=== PATIENT | female | born 1950 | race Caucasian/White ===

== ENCOUNTER → 2016-11-17 | Outpatient (CLI) | payer MEDICARE ==
--- NOTE | 2016-11-18 07:11 | WWHP ---
DATE OF SERVICE: 11/17/2016 CHIEF COMPLAINT: The patient is here for her routine gynecologic exam. HPI: This is a 66-year-old G5, P2-0-3-2 with an LMP of 1996. She is status post vaginal hysterectomy with anterior repair for benign reasons. The patient is without gynecologic complaints. She previously saw Dr. Adan for her gynecologic care. PAST MEDICAL HISTORY: Hypothyroidism. MEDICATIONS: 1. Synthroid 150 mcg daily. 2. Multivitamin daily. 3. Vitamin D 2000 units daily. Allergies to ASPIRIN, which caused throat tightening and CT SCAN DYE, which also caused throat tightening. PAST SURGICAL HISTORY: Salpingectomy for an ectopic , vaginal hysterectomy with anterior repair in 1996, cholecystectomy 2013, thyroidectomy for goiter in 1965, heel surgery, TMJ surgery, appendectomy, and tonsillectomy in the past. PAST OB HISTORY: Two vaginal deliveries. She had two spontaneous abortions and one ectopic . 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 She is status post vaginal hysterectomy in 1996. SOCIAL HISTORY: She denies tobacco, alcohol, and drug use. 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 FAMILY HISTORY: Sister had breast cancer and at age 65. Aunt had breast cancer. Father and mother had coronary artery disease and grandfather and grandmother had diabetes. REVIEW OF SYSTEMS: Weight has been stable. She denies respiratory, cardiac, or GI problems. PHYSICAL EXAM: Blood pressure 128/85. Height 5 feet 4 inches. Weight 176 pounds. Temperature 97.9, pulse 75. This a well-developed, well-nourished white female who is alert and oriented x3 in no acute distress. HEENT is within normal limits. NECK: Supple without mass or thyromegaly. CHEST AND LUNGS: Clear to auscultation. HEART: Regular rate and rhythm. Breasts are without mass or discharge. Axillary exam is negative for adenopathy. BACK: Negative for CVA tenderness. ABDOMEN: Soft, nontender, without palpable masses. PELVIC EXAM: External genitalia reveals mild atrophy without lesions. Vagina reveals mild atrophy without lesions. There is no evidence of prolapse. Bimanual exam is negative for mass or tenderness. Rectovaginal exam is negative for mass or tenderness and is negative for occult blood. EXTREMITIES: Nontender. IMPRESSION: A 66-year-old menopausal female, status post vaginal hysterectomy for benign reasons with normal gynecologic exam. PLAN: 1. Pap smears have been discontinued. 2. Self breast examination was discussed. 3. Left-sided mammogram will be due in 5 months and a slip was given to patient for this. 4. Bone density testing will be done through Dr. Mayorga in the near future and this has been scheduled for November. 5. She will return in one year.
== END | disposition home or self-care (01) ==

== ENCOUNTER → 2017-04-12 | Outpatient (CLI) | payer MEDICARE ==
--- NOTE | 2017-04-12 10:02 | MM ---
Reason for exam: follow-up at short interval from prior study. Last mammogram was performed 6 months ago. History: Patient is postmenopausal. Family history of breast cancer in sister at age 56, breast cancer in aunt at age 65, and breast cancer in cousin at age 40. Took estrogen for 2 years beginning at age 51. Physical Findings: Nurse did not find any significant physical abnormalities on exam. MG 3D Diag Mammo W/Cad LT CC and MLO view(s) were taken of the left breast. Prior study comparison: October 08, 2016, left breast MG work up mamm w CAD LT. October 01, 2016, bilateral MG screening mammo w CAD. October 15, 2014, bilateral MG screening mammo w CAD. There are scattered fibroglandular densities. Finding: There are typically benign round calcifications in the left breast. There is no discrete abnormality. These results were verbally communicated with the patient and result sheet given to the patient on 04/12/17. ASSESSMENT: Benign, BI-RAD 2 RECOMMENDATION: Return to routine screening mammogram schedule for both breasts. Back on schedule.
== END | disposition home or self-care (01) ==
LOC: RADMAMWWP 08:43
PROVIDERS: ATTEND Obstetrics & Gynecology
DX: R92.8 Other abnormal and inconclusive findings on diagnostic imaging of breast (principal)
CPT/HCPCS: G0206; G0279

== ENCOUNTER → 2017-11-16 | Outpatient (CLI) | payer MEDICARE ==
--- NOTE | 2017-11-17 08:59 | WWHP ---
[facility] - HISTORY AND PHYSICAL DATE OF DICTATION: 11/16/2017 CHIEF COMPLAINT: The patient is here for her routine gynecologic exam. HPI: This is a 67-year-old, G5, P2 0-3-2 with an LMP of 1996. The patient is status post vaginal hysterectomy for benign reasons. The patient is without gynecologic complaints. PAST MEDICAL HISTORY: Hypothyroidism. MEDICATIONS: Levothyroxine 150 mcg daily, multivitamin 1 daily, vitamin D 2000 units daily. ALLERGIES: ASPIRIN, WHICH CAUSES THROAT TIGHTENING AND CT SCAN DYE, WHICH ALSO CAUSED THROAT TIGHTENING. PAST SURGICAL HISTORY: Colonoscopy 2015, salpingectomy for an ectopic in the past, vaginal hysterectomy with anterior repair in 1996, cholecystectomy, thyroidectomy, heel surgery, TMJ, appendectomy and tonsillectomy in the past. 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 She has no history of STDs. SOCIAL HISTORY: She denies tobacco, alcohol, and drug use. 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 She spends part of the year up [place] in [place]. FAMILY HISTORY: Daughter recently was diagnosed with SLE, rheumatoid arthritis and heart valve problems. She has a sister who had breast cancer and an aunt who also had breast cancer. Mother and father both have coronary artery disease and a grandfather and grandmother have diabetes. REVIEW OF SYSTEMS: She has lost about 5 pounds over the last year. She denies respiratory, cardiac or GI problems. She denies maltreatment or falling. : She denies any significant problems with urinary leakage. PHYSICAL EXAM: Blood pressure 143/83, height 5 feet 4 inches, weight 171 pounds, temperature 97.9, pulse 74, BMI 29. This is a well-developed, well-nourished, white female, who is alert and oriented x3, in no acute distress. HEENT: Within normal limits. NECK: Supple without mass or thyromegaly. Chest and LUNGS: Clear to auscultation. HEART: Regular rate and rhythm. Breasts are without mass or discharge. Axillary exam is negative for adenopathy. Back negative for CVA tenderness. ABDOMEN: Soft, nontender, without palpable masses. Pelvic exam external genitalia reveals yipi-uk-sukaonwy atrophy without lesions. Vagina reveals [id number] atrophy without lesions. There is no significant prolapse. Bimanual exam is negative for mass or tenderness. Rectovaginal exam is negative for mass or tenderness and is negative for occult blood. Extremities nontender. IMPRESSION: 67-year-old menopausal female who is status post vaginal hysterectomy for benign reasons with normal gynecologic exam. PLAN: 1. Pap smears have been discontinued. 2. Self breast examination was discussed. 3. She had a benign mammogram in 03/2017. She will repeat this in 1 year. 4. She states she had a bone density test in [address] Mayorga and she will try to get a copy of the report for me. 5. Osteoporosis prevention was discussed. 6. She is declining all flu shots. 7. She will return in 1 year. MMODL / IJN: [id number] /
== END ==
LOC: CANPRECLI → WWCWWP 11:05
PROVIDERS: ATTEND Obstetrics & Gynecology
DX: Z53.9 Procedure and treatment not carried out, unspecified reason (principal)

== ENCOUNTER → 2019-02-01 | Outpatient (CLI) | payer MEDICARE ==
[2019-02-01 10:43] VITALS: BP 139/84; PULSE 81; RESP 20; TEMP 97.6; BMI 29.8
--- NOTE | 2019-02-01 11:39 | P.HPOB ---
History of Present Illness H&P Date: 02/01/19 Chief Complaint: The patient is here for her routine gynecologic exam and ma mmogram. This is a 68 year old 032 with an LMP of 1996. She is status post vaginal hysterectomy for benign reasons. The patient is without gynecologic complaints. Review of Systems She is gained 3 pounds over the last year. She denies respiratory, cardiac and G.I. problems. She denies maltreatment or problems with falling. : she denies any significant problems with urinary leakage. Past Medical History Past Medical History: Asthma, Thyroid Disorder Additional Past Medical History / Comment(s): Hypothyroidism. 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 History of Any Multi-Drug Resistant Organisms: None Reported Past Surgical History: Appendectomy, Hysterectomy, Orthopedic Surgery, Tonsillectomy Additional Past Surgical History / Comment(s): GUS HEEL SX, GUS TMJ SX, SALPINGECTOMY FOR TUBAL PREG, THYROIDECTOMY. Vaginal Hysterectomy with anterior repair 1996. Colonoscopy 2015. 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 She is not sexually active. She spends part of the year up [place] in [place]. - Past Family History Sister(s) Family Medical History: Cancer Additional Family Medical History / Comment(s): BREAST CA. Mother Family Medical History: Coronary Artery Disease (CAD) Additional Family Medical History / Comment(s): An aunt had breast cancer. Father Family Medical History: Coronary Artery Disease (CAD) Daughter(s) Additional Family Medical History / Comment(s): SLE Medications and Allergies Home Medications Medication Instructions Recorded Confirmed Type Levothyroxine Sodium [Synthroid] 150 mcg PO DAILY 11/12/14 02/01/19 History Cholecalciferol (Vitamin D3) 2,000 unit PO DAILY 02/01/19 02/01/19 History [Vitamin D3] Allergies Allergy/AdvReac Type Severity Reaction Status Date / Time aspirin Allergy LIGHTHEADEDNESS, Verified 02/01/19 10:32 "SHAKES" Iodinated Contrast- Oral and Allergy Itching, Verified 02/01/19 10:32 IV Dye TIGHTNESS [Iodinated Contrast Media - IN THROAT IV Dye] Exam Vital Signs Temp Pulse Resp BP Pulse Ox 02/01/19 10:35 97.6 F 81 20 139/84 99 Intake and Output 01/31/19 02/01/19 02/01/19 22:59 06:59 14:59 Other: Weight 78.925 kg Height 5'4", weight 174 pounds, BMI 29.9. This is a well-developed well-nourished white female who is alert and oriented times 3 in no acute distress. HEENT: Within normal limits. NECK: Supple without mass or thyromegaly. CHEST AND LUNGS: Clear to auscultation. HEART: Regular rate and rhythm. BREASTS: Are without mass or discharge. AXILLARY EXAM: Negative for adenopathy. BACK: Negative for CVA tenderness. ABDOMEN: Soft, nontender, without palpable masses. PELVIC EXAM: External genitalia appears normal with mild to moderate atrophy. Vagina appears normal with mild to moderate atrophy. There is no evidence of prolapse. Bimanual examination is negative for mass or tenderness. RECTAL EXAM: Rectovaginal exam is negative for mass or tenderness and is negative for occult blood. EXTREMITIES: Nontender. IMPRESSION: 1. 68-year-old menopausal female who is status post vaginal hysterectomy for benign reasons with normal gynecologic exam. PLAN: 1. Pap smears have been discontinued. 2. Self breast awareness was discussed with the patient. 3. Screening mammogram will be done today. 4. Osteoporosis prevention was discussed. I have stressed the importance of adequate calcium, vitamin D and regular exercise. Recommended amounts of calcium and vitamin D were also discussed. Bone density testing has been done through her ebd teacher in the past. She will continue to do this through her ebd teacher. She states she will also try to get a copy of her last bone density test sent to me. 5. She states she does not get flu shots. I have asked her to reconsider this. 6.She was advised to return in one year for her annual well woman exam.
--- NOTE | 2019-02-03 10:08 | MM ---
Reason for exam: screening (asymptomatic). Last mammogram was performed 1 year and 10 months ago. History: Patient is postmenopausal. Family history of breast cancer in sister at age 56, breast cancer in aunt at age 65, and breast cancer in cousin at age 40. Took estrogen for 2 years beginning at age 51. Physical Findings: A clinical breast exam by your physician is recommended on an annual basis and results should be correlated with mammographic findings. MG 3D Screening Mammo W/Cad Bilateral CC and MLO view(s) were taken. Prior study comparison: April 12, 2017, left breast MG 3d diag mammo w/cad LT. October 08, 2016, left breast MG work up mamm w CAD LT. There are scattered fibroglandular densities. No significant changes when compared with prior studies. ASSESSMENT: Benign, BI-RAD 2 RECOMMENDATION: Routine screening mammogram of both breasts in 1 year.
== END | disposition home or self-care (01) ==
LOC: WWCWWP 10:21
PROVIDERS: ATTEND Obstetrics & Gynecology
DX: Z12.31 Encounter for screening mammogram for malignant neoplasm of breast (principal)
CPT/HCPCS: 77063; 77067

== ENCOUNTER → 2020-11-26 | Outpatient (CLI) | payer MEDICARE ==
[2020-11-26 09:23] VITALS: BP 152/89; PULSE 81; RESP 18; TEMP 97.7
--- NOTE | 2020-11-26 10:03 | P.HPOB ---
History of Present Illness H&P Date: 11/26/20 Chief Complaint: The patient is here for her routine gynecologic exam and ma mmogram. This is a 70-year-old with an LMP of 1996. The patient is status post vaginal hysterectomy with anterior repair for benign reasons. The patient has been experiencing occasional pruritus in the area of moles on her breast. The patient is otherwise without complaints. Review of Systems She has gained about 8 pounds over the past 2 years. She denies respiratory, cardiac and G.I. problems. She denies maltreatment or problems with falling. : Occasional slight leakage when her bladder gets full. Past Medical History Past Medical History: Asthma, Thyroid Disorder Additional Past Medical History / Comment(s): Hypothyroidism. Osteopenia. 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 History of Any Multi-Drug Resistant Organisms: None Reported Past Surgical History: Appendectomy, Hysterectomy, Orthopedic Surgery, Tonsillectomy Additional Past Surgical History / Comment(s): GUS HEEL SX, GUS TMJ SX, SALPINGECTOMY FOR TUBAL PREG, THYROIDECTOMY. Vaginal Hysterectomy with anterior repair 1996. Colonoscopy 2015(Next after 5yr). Past Anesthesia/Blood Transfusion Reactions: Postoperative Nausea & Vomiting (PONV) Past Psychological History: No Psychological Hx Reported Smoking Status: Never smoker Past Alcohol Use History: None Reported Past Drug Use History: None Reported Additional History: She has been since 1971. She is not sexually active. Her was diagnosed with non-Hodgkin's lymphoma. 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 She spends part of the year in [facility]. - Past Family History Mother Family Medical History: Coronary Artery Disease (CAD) Additional Family Medical History / Comment(s): An aunt had breast cancer. Father Family Medical History: Coronary Artery Disease (CAD) Daughter(s) Additional Family Medical History / Comment(s): SLE Sister(s) Family Medical History: Cancer Additional Family Medical History / Comment(s): BREAST CA. Medications and Allergies Home Medications Medication Instructions Recorded Confirmed Type Cholecalciferol (Vitamin D3) 2,000 unit PO DAILY 02/01/19 11/26/20 History [Vitamin D3] Calcium Carbonate/Vitamin D3 1 each PO DAILY 11/26/20 11/26/20 History [Calcium 500 mg-Vit D3 5 mcg (200 Unit)] Multivitamin [Multivitamins Adult 1 tab PO DAILY 11/26/20 11/26/20 History Gummies] [place]-3 Fatty Acids/Fish Oil [Fish 1 each PO DAILY 11/26/20 11/26/20 History Oil 1,000 mg Softgel] Thyroid,Pork [[place] Thyroid] 60 mg PO DAILY 11/26/20 11/26/20 History Allergies Allergy/AdvReac Type Severity Reaction Status Date / Time aspirin Allergy LIGHTHEADEDNESS, Verified 11/26/20 09:15 "SHAKES" Iodinated Contrast Media Allergy Itching, Verified 11/26/20 09:15 [Iodinated Contrast Media - TIGHTNESS IV Dye] IN THROAT Exam Vital Signs Temp Pulse Resp BP Pulse Ox 11/26/20 09:17 97.7 F 81 18 152/89 97 Intake and Output 11/25/20 11/26/20 11/26/20 22:59 06:59 14:59 Other: Weight 82.554 kg Height 5 feet 4-1/2 inches, weight 182 pounds, BMI 38.8. This is a well-developed well-nourished white female who is alert and oriented times 3 in no acute distress. HEENT: Within normal limits. NECK: Supple without mass or thyromegaly. CHEST AND LUNGS: Clear to auscultation. HEART: Regular rate and rhythm. BREASTS: Are without mass or discharge. There are a few small benign-appearing moles on the breast. Some are Brown and some appear as small benign red hemangiomas. All are less than 8 mm. There is no significant erythema. AXILLARY EXAM: Negative for adenopathy. BACK: Negative for CVA tenderness. ABDOMEN: Soft, nontender, without palpable masses. PELVIC EXAM: External genitalia appears normal with mild to moderate atrophy. Vagina appears normal with mild to moderate atrophy. There is no evidence of prolapse. Bimanual examination is negative for mass or tenderness. RECTAL EXAM: Rectovaginal exam is negative for mass or tenderness and is negative for occult blood. EXTREMITIES: Nontender. IMPRESSION: 1. 70-year-old menopausal female status post vaginal hysterectomy with anterior repair for benign reasons, with normal gynecologic exam. 2. Bilateral breast pruritus in the area of benign-appearing moles. 3. Elevated blood pressure 4. History of osteopenia PLAN: 1. Pap smears have been discontinued. 2. Self breast awareness was discussed with the patient. 3. Screening mammogram will be done today. 4. I have recommended that she check her blood pressure on a regular basis since she does have a blood pressure cuff. She will follow-up with Dr. Moran for blood pressure elevations. 5. She believes she is coming due for her colonoscopy and she will follow up with Dr. Moran to arrange for this. 6.Osteoporosis prevention was discussed. I have stressed the importance of adequate calcium, vitamin D and regular exercise. Recommended amounts of calcium and vitamin D were also discussed. Bone density testing was recommended since her last one was in 2017. The order slip was given to the patient for this. She states she would like to have this done at [facility]. 7. The patient was advised to return in 1-2 years for her well woman examination.
--- NOTE | 2020-11-27 11:55 | MM ---
Reason for exam: screening (asymptomatic). Last mammogram was performed 1 year and 10 months ago. History: Patient is postmenopausal. Family history of breast cancer in sister at age 56, breast cancer in aunt at age 65, and breast cancer in cousin at age 40. Took estrogen for 2 years beginning at age 51. Physical Findings: A clinical breast exam by your physician is recommended on an annual basis and results should be correlated with mammographic findings. MG 3D Screening Mammo W/Cad Bilateral CC and MLO view(s) were taken. Prior study comparison: February 01, 2019, bilateral MG 3d screening mammo w/cad. April 12, 2017, left breast MG 3d diag mammo w/cad LT. There are scattered fibroglandular densities. There is no discrete abnormality. No significant changes when compared with prior studies. ASSESSMENT: Negative, BI-RAD 1 RECOMMENDATION: Routine screening mammogram of both breasts in 1 year.
== END | disposition home or self-care (01) ==
LOC: WWCWWP 09:05
PROVIDERS: ATTEND Obstetrics & Gynecology
DX: Z12.31 Encounter for screening mammogram for malignant neoplasm of breast (principal)
CPT/HCPCS: 77063; 77067

== ENCOUNTER → 2022-08-04 | Outpatient (CLI) | payer MEDICARE ==
--- NOTE | 2022-08-05 12:42 | CA ---
Transthoracic Echo Report Name: Vanna Jimenez Age: 71 Gender: F : 1950 Exam Date: 08/04/2022 12:57 Exam Location: [facility] Ht (in): 54 Wt (lb): 174 Ordering Physician: Carlyle Moran MD Attending/Referring Phys: Carlyle Moran MD Acute Care Occupational Therapist Cailin Wellington, [facility] Procedure CPT: Indications: R94.31 ABNORMAL EKG Cardiac Hx: Technical Quality: Good Contrast 1: Total Dose (mL): Contrast 2: Total Dose (mL): MEASUREMENTS (Male / Female) Normal Values 2D ECHO LV Diastolic Diameter PLAX 4.2 cm 4.2 - 5.9 / 3.9 - 5.3 cm LV Systolic Diameter PLAX 3.0 cm IVS Diastolic Thickness 0.9 cm 0.6 - 1.0 / 0.6 - 0.9 cm LVPW Diastolic Thickness 1.0 cm 0.6 - 1.0 / 0.6 - 0.9 cm LV Relative Wall Thickness 0.5 RV Internal Dim ED PLAX 3.2 cm LA Systolic Diameter LX 3.4 cm 3.0 - 4.0 / 2.7 - 3.8 cm LA Volume 31.8 cm??? 18 - 58 / 22 - 52 cm??? M-MODE Aortic Root Diameter MM 2.6 cm LA Systolic Diameter MM 3.2 cm LA Ao Ratio MM 1.2 MV E Point Septal Separation 0.3 cm AV Cusp Separation MM 1.9 cm DOPPLER MV Area PHT 1.9 cm??? Mitral E Point Velocity 28.7 cm/s Mitral A Point Velocity 55.6 cm/s Mitral E to A Ratio 0.5 MV Deceleration Time 407.4 ms MV E' Velocity 4.2 cm/s Mitral E to MV E' Ratio 6.8 FINDINGS Left Ventricle Normal left ventricular size, wall thickness, systolic function with no obvious regional wall motion abnormalities. The ejection fraction is visually estimated at 55 %. Right Ventricle The right ventricle is normal in size and function. Right Atrium The right atrium is normal in size. Left Atrium The left atrium is normal in size. Mitral Valve Structurally normal mitral valve without significant stenosis or prolapse. There is mild mitral regurgitation. Aortic Valve Structurally normal aortic valve without significant sclerosis or stenosis. There is no aortic regurgitation. Tricuspid Valve Structurally normal tricuspid valve without significant stenosis. Pulmonary artery systolic pressure is normal. Pulmonic Valve Structurally normal pulmonic valve without significant stenosis. There is no pulmonic regurgitation. Pericardium Normal pericardium without effusion. Aorta Normal aortic root dimension. CONCLUSIONS Left ventricular ejection fraction 55% Mild mitral regurgitation No pericardial effusion Previewed by: Dr. Timmy Trevizo DO (Electronically Signed) Final Date: 05 August 2022 12:41
== END | disposition home or self-care (01) ==
LOC: RADECHMAIN 12:48
PROVIDERS: ATTEND Family Medicine
DX: R94.31 Abnormal electrocardiogram [ECG] [EKG] (principal)
CPT/HCPCS: 93306

== ENCOUNTER → 2022-09-01 | Outpatient (CLI) | payer MEDICARE ==
--- NOTE | 2022-09-01 12:49 | CA ---
Stress Echo Report Vanna Jimenez Age: 71 Gender: F : 1950 Exam Date: 09/01/2022 10:14 Exam Location: [facility] [facility] Ht (in): 64 Wt (lb): 178 Ordering Physician: Carlyle Moran MD Referring Physician: Carlyle Moran MD Yardage Control Clerk: Cailin Wellington RDCS Technologist Procedure CPT: Indication: R94.31 ABNORMAL EKG ICD-9 Codes: Rhythm: Patient History: ABN EKG Cardiac Medications: ARMOUR 120MG Medications in past 24 hours: Contrast: Stress Results Protocol: Shamar Total dose(mL): Exercise Duration (min:sec): 6.[address] Depression (mm): Angina Score: Jama Score: METS: 7.3 Resting HR: 97 Resting BP: 139 / 74 Peak HR: 158 Peak BP: 208 / 106 Max Predicted HR: 150 105 % Max Predicted HR Target HR: 128 Double Product: [id number] Stress Summary: BP Response: Reason for Termination: PT REACHED TARGET HEART RATE Cardiac Symptoms: ECG Analysis Resting ECG: Stress ECG: Arrhythmia: Echo Analysis Resting Echo: Peak Echo Analysis: MEASUREMENTS (Male/Female) Normal Values CONCLUSIONS Good exercise tolerance Normal EKG in response to exercise Normal echocardiogram in response to exercise Dr. Osmani Romano MD (Electronically Signed) Final Date: 01 September 2022 12:48
== END | disposition home or self-care (01) ==
LOC: RADNMMAIN 09:42
PROVIDERS: ATTEND Family Medicine
DX: R94.31 Abnormal electrocardiogram [ECG] [EKG] (principal)
CPT/HCPCS: 93351

== ENCOUNTER → 2022-10-20 | Outpatient (CLI) | payer MEDICARE ==
[2022-10-20 08:44] VITALS: BP 146/92; PULSE 77; RESP 16; TEMP 98.5
--- NOTE | 2022-10-20 09:36 | P.HPOB ---
History of Present Illness H&P Date: 10/20/22 Chief Complaint: The patient is here for her routine gynecologic exam and ma mmogram. This is a 72-year-old 032 with an LMP of 1996. The patient is status post vaginal hysterectomy with anterior repair for benign reasons. The patient is without gynecologic complaints. Review of Systems Weight has been stable over the past year. Review of systems is unremarkable. Past Medical History Past Medical History: Asthma, Thyroid Disorder Additional Past Medical History / Comment(s): Hypothyroidism. Osteopenia. 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 History of Any Multi-Drug Resistant Organisms: None Reported Past Surgical History: Appendectomy, Hysterectomy, Orthopedic Surgery, Tonsillectomy Additional Past Surgical History / Comment(s): GUS HEEL SX, GUS TMJ SX, SALPINGECTOMY FOR TUBAL PREG, THYROIDECTOMY. Vaginal Hysterectomy with anterior repair 1996. Colonoscopy 2015. Past Anesthesia/Blood Transfusion Reactions: Postoperative Nausea & Vomiting (PONV) Past Psychological History: No Psychological Hx Reported Smoking Status: Never smoker Past Alcohol Use History: None Reported Past Drug Use History: None Reported Additional History: She is been since 1971 and is not sexually active. Her was diagnosed with B cell lymphoma. 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 - Past Family History Mother Family Medical History: Coronary Artery Disease (CAD) Additional Family Medical History / Comment(s): An aunt had breast cancer. Father Family Medical History: Coronary Artery Disease (CAD) Daughter(s) Additional Family Medical History / Comment(s): SLE Sister(s) Family Medical History: Cancer Additional Family Medical History / Comment(s): BREAST CA. Medications and Allergies Home Medications Medication Instructions Recorded Confirmed Type Cholecalciferol (Vitamin D3) 2,000 unit PO DAILY 02/01/19 10/20/22 History [Vitamin D3] Calcium Carbonate/Vitamin D3 1 each PO DAILY 11/26/20 10/20/22 History [Calcium 500 mg-Vit D3 5 mcg (200 Unit)] Multivitamin [Multivitamins Adult 1 tab PO DAILY 11/26/20 10/20/22 History Gummies] Thyroid,Pork [[place] Thyroid] 120 mg PO DAILY 11/26/20 11/26/20 History Allergies Allergy/AdvReac Type Severity Reaction Status Date / Time aspirin Allergy LIGHTHEADEDNESS, Verified 10/20/22 08:38 "SHAKES" Iodinated Contrast Media Allergy Itching, Verified 10/20/22 08:38 [Iodinated Contrast Media - TIGHTNESS IV Dye] IN THROAT Exam Vital Signs Temp Pulse Resp BP Pulse Ox 10/20/22 08:40 98.5 F 77 16 146/92 97 Intake and Output 10/19/22 10/20/22 10/20/22 22:59 06:59 14:59 Other: Weight 82.554 kg Height 5 feet 4 inches, weight 182 pounds, BMI 31.2. This is a well-developed well-nourished white female who is alert and oriented times 3 in no acute distress. HEENT: Within normal limits. NECK: Supple without mass or thyromegaly. CHEST AND LUNGS: Clear to auscultation. HEART: Regular rate and rhythm. BREASTS: Are without mass or discharge. AXILLARY EXAM: Negative for adenopathy. BACK: Negative for CVA tenderness. ABDOMEN: Soft, nontender, without palpable masses. PELVIC EXAM: External genitalia appears normal with mild to moderate atrophy. Vagina appears normal with mild atrophy. There is no evidence of prolapse. Bimanual examination is negative for mass or tenderness. RECTAL EXAM: Rectovaginal exam is negative for mass or tenderness and is negati ve for occult blood. EXTREMITIES: Nontender. IMPRESSION: 1. 72-year-old menopausal female status post vaginal hysterectomy for benign reasons, with normal gynecologic exam. 2. History of osteopenia. PLAN: 1. Pap smears have been discontinued. 2. Self breast awareness was discussed with the patient. We have also discussed symptoms associated with inflammatory breast cancer. 3. Screening mammogram will be done today. 4. Osteoporosis prevention was discussed. I have stressed the importance of adequate calcium, vitamin D and regular exercise. Recommended amounts of calcium and vitamin D were also discussed. We will plan on repeating bone density testing in 1 year. 5. She has completed her Covid vaccination series and has received 1 booster. 6. She was advised to return in one year for her annual well woman exam.
--- NOTE | 2022-10-21 08:10 | MM ---
Reason for Exam: Screening (asymptomatic). Last mammogram was performed 1 year(s) and 10 month(s) ago. Patient History: Menarche at age 14. First Full-Term at age 25. Hysterectomy at age 46. Postmenopausal. Estrogen for 2 years from age 51 until age 53. Maternal cousin had breast cancer, age 40. Maternal aunt had breast cancer, age 65. Sister had breast cancer, age 56. Risk Values: Patricia 5 year model risk: 3.3%. NCI Lifetime model risk: 9.1%. Prior Study Comparison: 04/12/2017 Left Diagnostic Mammogram, [facility]. 02/01/2019 Bilateral Screening Mammogram, [facility]. 11/26/2020 Bilateral Screening Mammogram, [facility]. Tissue Density: The breast tissue is almost entirely fat. Findings: Analyzed By CAD. There is no suspicious group of microcalcifications or new suspicious mass in either breast. Overall Assessment: Negative, BI-RAD 1 Management: Screening Mammogram of both breasts in 1 year. A clinical breast exam by your physician is recommended on an annual basis and results should be correlated with mammographic findings. [facility] will attempt to contact patient to return for supplemental views and ultrasound if indicated. Electronically signed and approved by: Kun Galindo DO
== END ==
LOC: WWCWWP 08:24
PROVIDERS: ATTEND Obstetrics & Gynecology
DX: Z01.411 Encounter for gynecological examination (general) (routine) with abnormal findings (principal); Z12.31 Encounter for screening mammogram for malignant neoplasm of breast; M85.80 Other specified disorders of bone density and structure, unspecified site; J45.909 Unspecified asthma, uncomplicated; E03.9 Hypothyroidism, unspecified; Z88.6 Allergy status to analgesic agent; Z91.041 Radiographic dye allergy status
CPT/HCPCS: 77063; 77067

== ENCOUNTER → 2023-08-25 | Outpatient (CLI) | payer MEDICARE ==
--- NOTE | 2023-08-25 12:38 | MR ---
EXAMINATION TYPE: MR lumbar spine wo con DATE OF EXAM: 08/25/2023 COMPARISON: Lumbar spine radiograph 08/11/2023, MRI lumbar spine 12/12/2021 HISTORY: Lower back and right hip pain. TECHNIQUE: Multiplanar, multisequence images of the lumbar spine were acquired without IV contrast. FINDINGS: Lumbar segments are intact. No paraspinal masses are identified. Conus medullaris has a normal appe arance. Benign T1/T2 hyperintense hemangiomas identified within the T12 and L2 vertebral bodies redem onstrated. Incidental sacral Tarlov cyst at S3 redemonstrated. L1-L2: Minimal broad-based disc bulge without significant effacement of anterior thecal sac. Bilatera l facet arthropathy. The neural foramina are minimally narrowed bilaterally. L2-L3: Minimal broad-based disc bulge without significant effacement of anterior thecal sac. Bilatera l facet arthropathy. The neural foramina are patent bilaterally. L3-L4: No herniation, protrusion or disc bulging. No canal stenosis is present. Bilateral facet arth ropathy. Mild left neural foraminal stenosis. The right neural foramen is patent. L4-L5: Broad-based disc bulge without significant effacement of the intrathecal sac. Bilateral facet arthropathy. Mild bilateral neural foraminal stenosis. L5-S1: No herniation, protrusion or disc bulging. No canal stenosis is present. Bilateral facet arth ropathy. Minimal bilateral neural foraminal narrowing. Tortuosity of the abdominal aorta without evidence of aneurysm. IMPRESSION: 1. No disc herniation or significant central canal stenosis. 2. Similar mild multilevel degenerative disc disease and facet arthropathy.
== END | disposition home or self-care (01) ==
LOC: RADMRIMAIN 10:53
PROVIDERS: ATTEND Orthopaedic Surgery
DX: M51.36 Other intervertebral disc degeneration, lumbar region (principal); M47.816 Spondylosis without myelopathy or radiculopathy, lumbar region
CPT/HCPCS: 72148

== ENCOUNTER 2023-10-15 13:11 | Day surgery (SDC) | payer MEDICARE, OTHER ==
[~2023-10-15 13:11] MED LIST: LACTATED RINGERS 1,000 ML IV SCH; TETRACAINE 0.5% OPHTH (PF) DROPS 4 ML BTL OP PRN
[2023-10-15] MEDS: PHENYLEPHRINE 2.5% OPHTH DRP 2ML OP PRN ×3 (14:00→14:12)
[2023-10-15] MEDS: CYCLOPENTOLATE 1% OPHTH SOLN 2 ML BTL OP PRN ×3 (14:03→14:15)
[2023-10-15] MEDS ORDERED: ONDANSETRON 4 MG/2 ML VIAL ONE (14:09)
[2023-10-15] MEDS ORDERED: ONDANSETRON 4 MG/2 ML VIAL IVP ONE (14:10)
[2023-10-15 14:16] VITALS: RESP 16; TEMP 98.4
[2023-10-15] MEDS ORDERED: HYALURONATE SODIUM INTRAOCULAR 1 EACH SYRINGE (12MG/ML) INTRAOCULA ONE ×2 (15:41→15:59)
[2023-10-15] MEDS ORDERED: LIDOCAINE 1% (PF) 10MG/ML VIAL MISCELLANE ONE (15:42)
[2023-10-15] MEDS ORDERED: BALANCED SALT IRRIG SOLN COMB2 15 ML IRRIG.SOLN INTRAOCULA ONE ×2 (15:42→15:59)
[2023-10-15] MEDS: TIMOLOL 0.5% OPHTH DROPS 5 ML BTL OP PRN ×2 (15:43→15:59)
[2023-10-15] MEDS: MOXIFLOXACIN HCL 0.5% DROPS 3 ML BTL OP PRN ×2 (15:43→15:59)
[2023-10-15] MEDS ORDERED: MIDAZOLAM 2 MG/2 ML VIAL ONE (15:45)
[2023-10-15] MEDS ORDERED: fentaNYL (PF) 50 MCG/ML 2 ML AMP ONE (15:45)
[2023-10-15] MEDS ORDERED: EPINEPHrine (PF) 0.3 ML in BALANCED SALT IRRIG SOLN COMB2 500 ML IRRIGATION ONE (15:50)
[2023-10-15] MEDS ORDERED: LIDOCAINE 1% PF 10 MG/ML (5 ML AMP) MISCELLANE ONE (15:59)
--- NOTE | 2023-10-15 16:19 | P.OP ---
Date of Procedure: 10/15/23 Preoperative Diagnosis: NS & CS Postoperative Diagnosis: same Procedure(s) Performed: PIOL< OS Implants: [id number] 22.00 Anesthesia: MAC Surgeon: Juan Manuel Davidson Pathology: none sent Condition: stable Disposition: same day Indications for Procedure: blurry vision Operative Findings: no complications
[2023-10-15 16:38] VITALS: BP 120/79; PULSE 62
--- NOTE | 2023-10-16 00:17 | OP ---
OPERATIVE REPORT DATE OF SERVICE : 10/15/2023 PROCEDURES PERFORMED: Phacoemulsification of cataract and intraocular lens implant of the left eye. PREOPERATIVE DIAGNOSES: Nuclear sclerosis, cortical sclerosis, and regular astigmatism. POSTOPERATIVE DIAGNOSES: Nuclear sclerosis, cortical sclerosis, and regular astigmatism. ANESTHESIA: Topical. ESTIMATED BLOOD LOSS: None. SPECIMEN TAKEN: None. NARRATIVE: After obtaining the appropriate consent, the axis of 0 and 180 degrees was identified and marked with a gentian medardo marker. On admission to the operating room, she was laid in the proper supine position under cardiac monitoring and prepped and draped in the usual sterile manner. The axis of 177 degrees was identified and marked with a [employer] axis marker at the 5 o'clock position, an MVR blade was used to create a paracentesis port. Through this opening, 1% Xylocaine MPF 50:50 mix with balanced salt solution was injected into the anterior chamber. This was followed by stabilization of the anterior chamber with Amvisc. At the 3 o'clock position, a 2.5 mm keratome was used to create a self-sealing corneal flap incision. Through this opening, a cystotome was introduced to begin a continuous tear capsulorrhexis which was then completed using the Utrata forceps. Hydrodissection and hydrodelineation of the lens were accomplished with balanced salt solution. Phacoemulsification of the lens utilizing phaco chop was accomplished in 12.39 seconds at 10.8% power. Additional Xylocaine MPF was instilled into the anterior chamber. This was followed by removal of the remaining cortical material under irrigation and aspiration as well as careful polishing of the posterior capsule in the capsule vacuum mode. Additional Amvisc was then used to stabilize the capsular bag. A Bausch and Lomb MX 60ET 222.0 diopter spherical equivalent posterior chamber intraocular lens was inserted into the capsular bag without difficulty. The remaining viscoelastic was removed from in and around the intraocular lens and the lens was then oriented in alignment with the previously placed axis of 177 degrees. The eye was brought to normal intraocular pressure through the paracentesis ports. All wounds were confirmed watertight and stabilized using Tisseel. She then received 2 drops of 0.5% timolol followed by 2 drops of moxifloxacin, was then lightly patched and shielded in the usual manner. There were no complications from the procedure. She tolerated the procedure well and was returned to outpatient recovery in good condition. KEITHODL / IJN: [id number] /
== END 2023-10-15 16:53 | disposition home or self-care (01) ==
LOC: OR 13:11
PROVIDERS: ATTEND Ophthalmology
DX: H25.12 Age-related nuclear cataract, left eye (principal); H52.222 Regular astigmatism, left eye; E78.5 Hyperlipidemia, unspecified; J45.909 Unspecified asthma, uncomplicated; E07.9 Disorder of thyroid, unspecified; K21.9 Gastro-esophageal reflux disease without esophagitis; Z79.890 Hormone replacement therapy; Z79.899 Other long term (current) drug therapy; Z88.6 Allergy status to analgesic agent; Z88.8 Allergy status to other drugs, medicaments and biological substances
CPT/HCPCS: 66984; V2787; C1780; J2250; J2405; J0171; J2001; J3010

== ENCOUNTER 2023-11-17 06:08 | Day surgery (SDC) | payer MEDICARE, OTHER ==
[2023-11-15 09:21] VITALS: BMI 29.2
[~2023-11-17 06:08] MED LIST changes: -LACTATED RINGERS 1,000 ML IV SCH; +MOXIFLOXACIN HCL 0.5% DROPS 3 ML BTL OP PRN; +TIMOLOL 0.5% OPHTH DROPS 5 ML BTL OP PRN
[2023-11-17] MEDS ORDERED: LACTATED RINGERS 1,000 ML IV SCH (06:11)
[2023-11-17] MEDS: CYCLOPENTOLATE 1% OPHTH SOLN 2 ML BTL OP PRN ×3 (06:46→07:05)
[2023-11-17] MEDS: PHENYLEPHRINE 2.5% OPHTH DRP 2ML OP PRN ×3 (06:54→07:08)
[2023-11-17 06:58] VITALS: TEMP 98.2
[2023-11-17] MEDS ORDERED: ONDANSETRON 4 MG/2 ML VIAL ONE (07:13)
[2023-11-17] MEDS ORDERED: ONDANSETRON 4 MG/2 ML VIAL IVP ONE (07:15)
[2023-11-17] MEDS ORDERED: MIDAZOLAM 2 MG/2 ML VIAL ONE (07:28)
[2023-11-17] MEDS ORDERED: fentaNYL (PF) 50 MCG/ML 2 ML AMP ONE (07:28)
[2023-11-17] MEDS ORDERED: BALANCED SALT IRRIG SOLN COMB2 15 ML IRRIG.SOLN INTRAOCULA ONE (07:53)
[2023-11-17] MEDS ORDERED: HYALURONATE SODIUM INTRAOCULAR 1 EACH SYRINGE (12MG/ML) INTRAOCULA ONE (07:53)
[2023-11-17] MEDS ORDERED: LIDOCAINE 1% (PF) 10MG/ML VIAL MISCELLANE ONE (07:54)
[2023-11-17] MEDS ORDERED: EPINEPHrine (PF) 0.3 ML in BALANCED SALT IRRIG SOLN COMB2 500 ML IRRIGATION ONE (07:58)
--- NOTE | 2023-11-17 08:09 | P.OP ---
Date of Procedure: 11/17/23 Preoperative Diagnosis: NS & CS Postoperative Diagnosis: same Procedure(s) Performed: PIOL, OD Implants: [id number] 22.50 Anesthesia: MAC Surgeon: Juan Manuel Davidson Pathology: none sent Condition: stable Disposition: same day Indications for Procedure: blurry vision Operative Findings: no complications
[2023-11-17 08:38] VITALS: RESP 14
[2023-11-17 09:04] VITALS: BP 134/814; PULSE 69
--- NOTE | 2023-11-17 19:12 | OP ---
OPERATIVE REPORT DATE OF SERVICE : 11/17/2023 PROCEDURE: Phacoemulsification of cataract and intraocular lens implant of the right eye. PREOPERATIVE DIAGNOSES: 1. Nuclear sclerosis. 2. Cortical sclerosis. 3. Regular astigmatism. POSTOPERATIVE DIAGNOSES: 1. Nuclear sclerosis. 2. Cortical sclerosis. 3. Regular astigmatism. ANESTHESIA: Topical. ESTIMATED BLOOD LOSS: Less than 5 mL. SPECIMEN TAKEN: None. NARRATIVE: After obtaining the appropriate consent, the patient's right eye was marked after receiving a drop of tetracaine at the 0 and 180 degree, marked using a gentian medardo marker on the patient's corneal limbus. She was then laid in the proper supine position under cardiac monitoring, prepped and draped in the usual sterile manner. She was approached from her right temporal side using previously acquired corneal topography information. The axis of 82 degrees was identified and marked with the [employer] [place] marker. At the 11 o'clock position, an MVR blade was used to create a paracentesis port. Through this opening, 1% Xylocaine MPF was instilled into the anterior chamber. This was followed by stabilization of the anterior chamber with Amvisc. At the 9 o'clock position, a 2.5 mm keratome was used to create a self-sealing corneal flap incision. Through this opening, a cystotome was introduced to begin a continuous tear capsulorrhexis, which was then completed using the Utrata forceps. Hydrodissection and hydrodelineation of the lens were accomplished with balanced salt solution. Phacoemulsification lens utilizing phaco chop was accomplished in 11.83 seconds at 15% power. Additional Xylocaine MPF was instilled into the anterior chamber. This was followed by removal of the remaining cortical material in the capsular bag under irrigation and aspiration as well as careful polishing of the posterior capsule in capsule vacuum mode. Additional Amvisc was then used to stabilize the capsular bag, and a Bausch and Lomb [id number] 22.5 diopter posterior chamber intraocular lens was then inserted into the capsular bag without difficulty. The remaining viscoelastic was removed from in and around the intraocular lens under irrigation and aspiration, and the lens was oriented at the 82-degree jose a, which was previously placed on the patient's cornea. She then received 2 drops of 0.5% timolol followed by 2 drops of moxifloxacin, and the temporal incision was sealed with Tisseel. She was then lightly patched in the usual manner. There were no complications from the procedure. She tolerated the procedure well and was returned to outpatient recovery in good condition. CHRISTINE / DANNA: [id number] /
== END 2023-11-17 08:56 | disposition home or self-care (01) ==
LOC: OR 06:08
PROVIDERS: ATTEND Ophthalmology
DX: H25.11 Age-related nuclear cataract, right eye (principal); H52.222 Regular astigmatism, left eye; E78.5 Hyperlipidemia, unspecified; J45.909 Unspecified asthma, uncomplicated; E03.9 Hypothyroidism, unspecified; E07.9 Disorder of thyroid, unspecified; K21.9 Gastro-esophageal reflux disease without esophagitis; M19.90 Unspecified osteoarthritis, unspecified site; Z88.6 Allergy status to analgesic agent; Z91.041 Radiographic dye allergy status; Z79.890 Hormone replacement therapy
CPT/HCPCS: 66984; V2787; C1780; J2250; J2405; J0171; J3010; J2001

== ENCOUNTER 2023-12-08 08:32 | Day surgery (SDC) | payer MEDICARE, OTHER ==
[~2023-12-08 08:32] MED LIST changes: -MOXIFLOXACIN HCL 0.5% DROPS 3 ML BTL OP PRN; -TIMOLOL 0.5% OPHTH DROPS 5 ML BTL OP PRN
[2023-12-08] MEDS: CYCLOPENTOLATE 1% OPHTH SOLN 2 ML BTL OP PRN (09:23)
[2023-12-08] MEDS: PHENYLEPHRINE 2.5% OPHTH DRP 2ML OP PRN (09:26)
[2023-12-08] MEDS ORDERED: ONDANSETRON 4 MG/2 ML VIAL ONE (09:33)
[2023-12-08 09:39] LABS: Glucose,Whole Blood 91 mg/dL (70-110)
[2023-12-08] MEDS: MIDAZOLAM 2 MG/2 ML VIAL IVP ONE (09:54)
[2023-12-08] MEDS: ONDANSETRON 4 MG/2 ML VIAL IVP ONE (09:54)
[2023-12-08] MEDS: LACTATED RINGERS 1,000 ML IV SCH (09:55)
[2023-12-08] MEDS ORDERED: fentaNYL (PF) 50 MCG/ML 2 ML AMP ONE (10:15)
[2023-12-08] MEDS ORDERED: MIDAZOLAM 2 MG/2 ML VIAL ONE (10:15)
[2023-12-08] MEDS: MOXIFLOXACIN HCL 0.5% DROPS 3 ML BTL OP PRN (10:35)
[2023-12-08] MEDS: HYALURONATE SODIUM INTRAOCULAR 1 EACH SYRINGE (12MG/ML) INTRAOCULA ONE (10:35)
[2023-12-08] MEDS: LIDOCAINE 1% (PF) 10MG/ML VIAL MISCELLANE ONE (10:35)
[2023-12-08] MEDS: EPINEPHrine (PF) 0.3 ML in BALANCED SALT IRRIG SOLN COMB2 500 ML IRRIGATION ONE (10:35)
[2023-12-08] MEDS: TIMOLOL 0.5% OPHTH DROPS 5 ML BTL OP PRN (10:35)
[2023-12-08] MEDS: BALANCED SALT IRRIG SOLN COMB2 15 ML IRRIG.SOLN INTRAOCULA ONE (10:35)
--- NOTE | 2023-12-08 10:52 | P.OP ---
Date of Procedure: 12/08/23 Preoperative Diagnosis: lens rotation/misposition Postoperative Diagnosis: same Procedure(s) Performed: reposition IOL, OS Implants: none Anesthesia: MAC Surgeon: Juan Manuel Davidson Pathology: none sent Condition: stable Disposition: same day Indications for Procedure: blurry vision Operative Findings: no complications
[2023-12-08 11:44] VITALS: BP 152/89; PULSE 65; RESP 17; TEMP 97
--- NOTE | 2023-12-09 07:46 | OP ---
OPERATIVE REPORT DATE OF SERVICE : 12/08/2023 PROCEDURE PERFORMED: Repositioning of an intraocular lens of the left eye. PREOPERATIVE DIAGNOSIS: Misposition of a toric intraocular lens. POSTOPERATIVE DIAGNOSIS: Misposition of a toric intraocular lens. ANESTHESIA: Topical. ESTIMATED BLOOD LOSS: None. SPECIMEN TAKEN: None. NARRATIVE: After obtaining the appropriate consent, the patient was asked to sit upright in the preoperative area and the axes of 0 and 180 degrees were identified and marked with a gentian medardo marker. She was then brought to the operating room where she was placed in the proper supine position under cardiac monitoring and then prepped and draped in the usual sterile manner. Using previously acquired corneal topography information, the axis of 87 degrees was identified and marked with the [employer] axis marker. At the 9 o'clock position, the original temporal incision was identified and enlarged using a 2.5 mm keratome. Through this opening, 1% Xylocaine MPF 50:50 mix with balanced salt solution was injected into the anterior chamber. This was followed by stabilization of the anterior chamber with Amvisc. A Sinskey hook was then advanced into the anterior chamber and was used to carefully separate the anterior capsular leaflet from the anterior surface of the intraocular lens. Once this was accomplished without much difficulty, Amvisc was then used to further separate the anterior and posterior capsular leaflets from each other using hydraulic pressure of the Amvisc viscoelastic material. Once the capsule was appropriately opened and the lens appeared sufficiently loosened from its current position, the Sinskey hook was reintroduced and the lens was rotated to the proper position in alignment with the 87 degree jose a placed on the cornea earlier in the case. There did not appear to be any fibrotic impairment to the rotation or placement of the lens, which centered nicely in the lens capsule. Irrigation and aspiration were then used to remove all viscoelastic from the anterior chamber as well as behind the intraocular lens. The intraocular lens was then tamponaded with the tip of the irrigation aspiration unit, while observing the appropriate alignment with the corneal fischer. The eye was then brought to normal intraocular pressure through the temporal incision which was hydrated slightly with balanced salt solution. Tisseel was applied to the wound of the eye to maintain watertight integrity. She then received 2 drops of 0.5% timolol followed by 2 drops of 0.5% moxifloxacin. She was then lightly patched and shielded in the usual manner. There were no complications from the procedure. She tolerated the procedure well and was returned to outpatient recovery in good condition. MMSTEVE / MELINDAN: [id number] /
== END 2023-12-08 11:32 | disposition home or self-care (01) ==
LOC: OR 08:32
PROVIDERS: ATTEND Ophthalmology
DX: T85.22XA Displacement of intraocular lens, initial encounter (principal); Y83.8 Other surgical procedures as the cause of abnormal reaction of the patient, or of later complication, without mention of misadventure at the time of the procedure
CPT/HCPCS: 66825; J2250; J2405; J0171; J3010; J2001

== ENCOUNTER → 2024-02-24 | Outpatient (CLI) | payer MEDICARE ==
--- NOTE | 2024-02-24 21:17 | MR ---
EXAMINATION TYPE: MR knee RT wo con DATE OF EXAM: 02/24/2024 COMPARISON: None HISTORY: Right knee pain. TECHNIQUE: Multiplanar, multisequence imaging of the right knee is performed without IV contrast. FINDINGS: There is no bone contusion or fracture. There is a small to moderate joint effusion. There is mild osteophytic change of the medial lateral compartment the knee where there is mild thinn ing of the articular cartilages and mild hypertrophic spurring of the margins. The cruciate and collateral ligaments are intact. There is a complex tear of the body, posterior horn and anterior horn of the lateral meniscus. The me dial meniscus is intact. Quadriceps and patellar tendons are intact. IMPRESSION: 1. Complex tear of the lateral meniscus. 2. Mild osteoarthritis of the medial lateral compartment of the knee. 3. No ligamentous injury 4. Small to moderate joint effusion.
== END | disposition home or self-care (01) ==
LOC: RADMRIMAIN 15:15
PROVIDERS: ATTEND Orthopaedic Surgery
DX: S83.281A Other tear of lateral meniscus, current injury, right knee, initial encounter (principal); M17.11 Unilateral primary osteoarthritis, right knee; M25.461 Effusion, right knee

== ENCOUNTER 2024-06-06 07:30 | Day surgery (SDC) | payer MEDICARE ==
--- NOTE | 2024-05-22 08:35 | P.HPOR ---
History of Present Illness H&P Date: 05/22/24 Chief Complaint: Right knee pain The patient is a 73-year-old retired female presents with progressive right knee pain for the past 2 years worsening recently. She has posterior and lateral pain along with locking and buckling. She notes daily pain that limits her. She tried medications in addition to activity modifications and home exercise without any real relief. Review of Systems Per HPI Past Medical History Past Medical History: Asthma, Eye Disorder, Hyperlipidemia, Osteoarthritis (OA), Thyroid Disorder Additional Past Medical History / Comment(s): Hypothyroidism. Osteopenia. History of Any Multi-Drug Resistant Organisms: None Reported Past Surgical History: Appendectomy, Hysterectomy, Orthopedic Surgery, Tonsille ctomy Additional Past Surgical History / Comment(s): GUS HEEL SX, GUS TMJ SX, SALPINGECTOMY FOR TUBAL PREG, partial THYROIDECTOMY. Vaginal Hysterectomy with anterior repair 1996. Colonoscopy 2015. Past Anesthesia/Blood Transfusion Reactions: Postoperative Nausea & Vomiting (PONV) Smoking Status: Never smoker - Past Family History Mother Family Medical History: Coronary Artery Disease (CAD) Additional Family Medical History / Comment(s): An aunt had breast cancer. Father Family Medical History: Coronary Artery Disease (CAD) Daughter(s) Additional Family Medical History / Comment(s): SYSTEMIC LUPUS Sister(s) Family Medical History: Cancer, Deep Vein Thrombosis (DVT) Additional Family Medical History / Comment(s): BREAST CA. Brother(s) Family Medical History: Deep Vein Thrombosis (DVT) Medications and Allergies Home Medications Medication Instructions Recorded Confirmed Type Cholecalciferol (Vitamin D3) 2,000 unit PO DAILY 02/01/19 12/03/23 History [Vitamin D3] Thyroid,Pork [[place] Thyroid] 120 mg PO [id number] 11/26/20 12/03/23 History Rosuvastatin [Crestor] 10 mg PO HS 10/13/23 12/03/23 History Thyroid,Pork [[place] Thyroid] 60 mg PO JONES 10/13/23 12/03/23 History methylPREDNISolone Dose Pack 4 mg PO DIRECTED 12/03/23 12/03/23 History [Medrol Dose Pack] Allergies Allergy/AdvReac Type Severity Reaction Status Date / Time aspirin Allergy LIGHTHEADEDNESS, Verified 12/08/23 09:29 "SHAKES" Iodinated Contrast Media Allergy Itching, Verified 12/08/23 09:29 [Iodinated Contrast Media - TIGHTNESS IV Dye] IN THROAT naproxen [From Naprosyn] Allergy Anaphylaxis Verified 12/08/23 09:31 Physical Examination - Knee right Appearance: effusion Effusion grade: grade 2 Tenderness with palpation: lateral Pain: throughout ROM Gait: limping ROM: extension: -10 degrees ROM: flexion: 100 degrees Strength: extension: 5/5 Strength: flexion: 5/5 Meniscal tests: lateral meniscal tests: positive, medial joint line pain: positive, lateral joint line pain: positive Results The patient is a well-developed well-nourished female approximately 5 foot 4, 178 pounds of mesomorphic habitus. HEENT exam is nonfocal, neck is supple. She has painless passive motion of the right hip. Straight leg raise negative. On examination of the right knee, she is tender about the medial and lateral joint line. Collaterals are stable, Dung is negative, Vesta's elicits lateral pain. She has genu valgum alignment. She does have an antalgic gait pattern. Her distal neurovascular exam appears intact in the right lower extremity. - Diagnostic results Knee MRI: image reviewed (MRI of the right knee shows evidence of a complex posterior lateral meniscal tear.) Assessment and Plan Assessment: Right knee internal derangement/symptomatic lateral meniscal tear Right knee moderate lateral compartment osteoarthrosis Plan: I talked to the patient at length regarding her condition along with treatment options. At this point she is quite symptomatic having pain and mechanical symptoms despite conservative measures. After a thorough discussion she opts to proceed with surgery. We'll plan to proceed with right knee arthroscopy with probable partial lateral meniscectomy. Risks and benefits were discussed at length in layman's terms. We will like to perform as an outpatient procedure.
[2024-06-06] MEDS ORDERED: DEXAMETHASONE SOD PHOSPHATE 4 MG/ML 1 ML VIAL ONE (09:58)
[2024-06-06] MEDS ORDERED: ONDANSETRON 4 MG/2 ML VIAL ONE ×2 (09:58→15:22)
[2024-06-06] MEDS ORDERED: MIDAZOLAM 2 MG/2 ML VIAL ONE (10:46)
[2024-06-06] MEDS ORDERED: LIDOCAINE 1% INJ 10MG/ML (20 ML MDV) ONE (10:46)
[2024-06-06] MEDS ORDERED: SODIUM CHLORIDE 0.9% IRRIG 3,000 ML BAG IRRIGATION ONE (10:46)
[2024-06-06] MEDS ORDERED: HYDROmorphone (PF) 1 MG/ML ONE (10:46)
[2024-06-06] MEDS ORDERED: LACTATED RINGERS 1,000 ML BAG ONE (10:46)
[2024-06-06] MEDS ORDERED: fentaNYL (PF) 50 MCG/ML 2 ML AMP ONE (10:46)
[2024-06-06] MEDS ORDERED: ceFAZolin 1,000 MG VIAL ONE (10:46)
[2024-06-06] MEDS ORDERED: PROPOFOL 10 MG/ML 20 ML VIAL IV ONE (10:46)
[2024-06-06] MEDS ORDERED: SODIUM CHLORIDE 0.9% 50 ML BAG ONE (10:46)
[2024-06-06] MEDS ORDERED: HYDROmorphone 0.5 MG/0.5 ML SYRINGE ONE ×2 (12:09→12:30)
--- NOTE | 2024-07-28 15:13 | P.OP ---
Date of Procedure: 07/28/24 Preoperative Diagnosis: Right knee internal derangement Postoperative Diagnosis: Right knee posterior medial and lateral meniscal tears Procedure(s) Performed: Right knee arthroscopic partial medial and lateral meniscectomy Anesthesia: GUZMANA Surgeon: Jerome Alexander Estimated Blood Loss (ml): 10 Pathology: none sent Condition: stable Disposition: PACU Indications for Procedure: The patient is a 73-year-old female presents with progressive right knee pain and mechanical symptoms despite conservative measures. A discussion of the risks and benefits of operative intervention versus continued conservative measures was made with the patient. She opted to proceed with surgery. Operative risks to include infection, neurovascular injury, development of blood clots, possible incomplete resolution of symptoms, possible worsening of symptoms and need for subsequent procedures was discussed. Operative Findings: As below Description of Procedure: The patient was brought to the operating room, and after induction of general anesthesia examined the right knee. Collaterals were stable, Dung was negative, and posterior drawer was negative. The right lower extremity was prepped and draped in a normal fashion. A superior lateral portal was made through a 3 mm skin incision superior and lateral to the patella. This was used for outflow. A lateral portal was made through a 5 mm vertical skin incision lateral to the patella tendon above the joint line. Diagnostic arthroscopy was performed. On inspection of the medial compartment, and oblique tear involving the posterior horn of the medial meniscus was noted in the white-white junction.. This was debrided back to stable base with straight baskets and a motorized shaver. On inspection of the notch, the anterior cruciate ligament appeared to be intact. On inspection of the lateral compartment, a macerated tear involving the posterior lateral meniscus was noted. This was debrided back to stable base with straight baskets and a motorized shaver.. On inspection of the patellofemoral articulation, there was chondral fibrillation however no loose chondral fragments. The gutters were clear debris. The knee was then thoroughly irrigated. The portals were closed with Steri-Strips. A sterile dressing was applied in addition to a compression stocking. The patient was awoken from general anesthesia and transferred to recovery room in good con dition. Blood loss was estimated at 10 mL. No complications were incurred.
== END 2024-06-06 16:20 ==
LOC: OR 07:30
PROVIDERS: ATTEND Orthopaedic Surgery
DX: S83.281A Other tear of lateral meniscus, current injury, right knee, initial encounter (principal); S83.241A Other tear of medial meniscus, current injury, right knee, initial encounter; M85.80 Other specified disorders of bone density and structure, unspecified site; M17.11 Unilateral primary osteoarthritis, right knee; J45.909 Unspecified asthma, uncomplicated; E78.5 Hyperlipidemia, unspecified; E03.9 Hypothyroidism, unspecified; Z88.6 Allergy status to analgesic agent; Z91.041 Radiographic dye allergy status; Z90.710 Acquired absence of both cervix and uterus; Z90.49 Acquired absence of other specified parts of digestive tract; X58.XXXA Exposure to other specified factors, initial encounter; Z79.899 Other long term (current) drug therapy

== ENCOUNTER → 2024-08-08 | Outpatient (CLI) | payer MEDICARE ==
[2024-08-08 09:18] VITALS: BP 154/96; PULSE 85; RESP 17; TEMP 98.5
--- NOTE | 2024-08-08 09:51 | P.HPOB ---
History of Present Illness H&P Date: 08/08/24 Chief Complaint: The patient is here for her routine gynecologic exam and ma mmogram. This is a 73-year-old -0-3-2 with an LMP of 1996. She is status post vaginal hysterectomy for benign reasons. She states she did have brief low abdominal achiness which did resolve. She is otherwise without complaints. Review of Systems The patient's weight has been stable over the last year. She denies respiratory, cardiac, or G.I. problems. Past Medical History Past Medical History: Asthma, Eye Disorder, Hyperlipidemia, Osteoarthritis (OA), Thyroid Disorder Additional Past Medical History / Comment(s): Hypothyroidism. Osteopenia. 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 History of Any Multi-Drug Resistant Organisms: None Reported Past Surgical History: Appendectomy, Hysterectomy, Orthopedic Surgery, Tonsillectomy Additional Past Surgical History / Comment(s): GUS HEEL SX, GUS TMJ SX, SALPINGE CTOMY FOR TUBAL PREG, partial THYROIDECTOMY. Vaginal Hysterectomy with anterior repair 1996. Colonoscopy 2015. Right knee arthroscopic surgery. Bilateral cataract surgery Past Anesthesia/Blood Transfusion Reactions: Postoperative Nausea & Vomiting (PONV) Past Psychological History: No Psychological Hx Reported Additional Psychological History / Comment(s): beginning of August 2023. Smoking Status: Never smoker Past Alcohol Use History: None Reported Past Drug Use History: None Reported Additional History: She has been a since 2022. She is retired. She is not sexually active. - Past Family History Mother Family Medical History: Coronary Artery Disease (CAD) Additional Family Medical History / Comment(s): An aunt had breast cancer. Father Family Medical History: Coronary Artery Disease (CAD) Daughter(s) Additional Family Medical History / Comment(s): SYSTEMIC LUPUS Sister(s) Family Medical History: Cancer, Deep Vein Thrombosis (DVT), Pulmonary Embolus Additional Family Medical History / Comment(s): BREAST CA. . Another sister had a pulmonary embolus. Brother(s) Family Medical History: Deep Vein Thrombosis (DVT) Medications and Allergies Home Medications Medication Instructions Recorded Confirmed Type Cholecalciferol (Vitamin D3) 2,000 unit PO DAILY 02/01/19 12/03/23 History [Vitamin D3] Thyroid,Pork [[place] Thyroid] 120 mg PO [id number] 11/26/20 12/03/23 History Rosuvastatin [Crestor] 10 mg PO HS 10/13/23 12/03/23 History Thyroid,Pork [[place] Thyroid] 60 mg PO JONES 10/13/23 12/03/23 History Flecainide [Tambocor] 50 mg PO DAILY 08/08/24 08/08/24 History Multivitamin [Multivitamins Adult 1 tab PO DAILY 08/08/24 08/08/24 History Gummies] Allergies Allergy/AdvReac Type Severity Reaction Status Date / Time aspirin Allergy LIGHTHEADEDNESS, Verified 08/08/24 09:13 "SHAKES" Iodinated Contrast Media Allergy Itching, Verified 08/08/24 09:13 [Iodinated Contrast Media - TIGHTNESS IV Dye] IN THROAT naproxen [From Naprosyn] Allergy Anaphylaxis Verified 08/08/24 09:13 Exam Vital Signs Temp Pulse Resp BP Pulse Ox 08/08/24 09:16 98.5 F 85 17 154/96 96 Intake and Output 08/07/24 08/08/24 08/08/24 22:59 06:59 14:59 Other: Weight 82.1 kg Height 5 feet 4 inches, weight 181 pounds, BMI 31.1 This is a well-developed well-nourished white female who is alert and oriented times 3 in no acute distress. HEENT: Within normal limits. NECK: Supple without mass or thyromegaly. CHEST AND LUNGS: Clear to auscultation. HEART: Regular rate and rhythm. BREASTS: Are without mass or discharge. AXILLARY EXAM: Negative for adenopathy. BACK: Negative for CVA tenderness. ABDOMEN: Soft, nontender, without palpable masses. PELVIC EXAM: External genitalia appears normal with mild atrophy. Vagina appears normal with mild atrophy. There is no evidence of prolapse. Bimanual examination is negative for mass or tenderness. RECTAL EXAM: Rectovaginal exam is negative for mass or tenderness and is negative for occult blood. EXTREMITIES: Nontender. IMPRESSION: 1. 73-year-old menopausal female status post vaginal hysterectomy for benign reasons, with normal gynecologic exam. 2. History of osteopenia. 3. Elevated blood pressure. PLAN: 1. Pap smears have been discontinued. 2. Self breast awareness was discussed with the patient. We have also discussed symptoms associated with inflammatory breast cancer. 3. Screening mammogram will be done today. 4. Osteoporosis prevention was discussed. I have stressed the importance of adequate calcium, vitamin D and regular exercise. Recommended amounts of calciu m and vitamin D were also discussed. Bone density test will be done today. 5. She was instructed to call if she is having a recurrence of lower abdominal achiness problems. 6. She was advised to return in one year for her annual well woman exam.
--- NOTE | 2024-08-09 08:13 | BD ---
EXAMINATION TYPE: Axial Bone Density DATE OF EXAM: 08/08/2024 CLINICAL HISTORY: 73 years old Female. ICD-10 CODE: Z780 POST KASIA WITHOUT HRT Height: 63 Weight: 177 FRAX RISK QUESTIONS: Family History (Parent hip fracture): yes History of Fracture in Adulthood: no Secondary Osteoporosis: no RISK FACTORS HISTORY OF: History of Wrist Fracture: yes When: as child Surgery to Spine/Hip(right/left)/Wrist (right/left): no MEDICATIONS: Thyroid Medications: yes Which medication: armour thyroid How Lon+ years Osteoporosis Medications: no EXAM MEASUREMENTS: Bone mineral densitometry was performed using the [employer] System. Bone mineral density as measured about the Lumbar spine is: ----- L1-L4(G/cm2): 1.013 T Score Values are as follows: ----- L1: -1.1 ----- L2: -1.8 ----- L3: -1.3 ----- L4: -1.4 ----- L1-L4: -1.4 Z Score Values are as follows: ----- L1: 0.1 ----- L2: -0.6 ----- L3: -0.1 ----- L4: -0.2 ----- L1-L4: -0.2 Bone mineral density baseline Bone mineral density about the R hip (g/cm2): 0.847 Bone mineral density about the L hip (g/cm2): 0.863 T Score values are as follows: -----R Neck: -1.3 -----L Neck: -1.1 -----R Total: -1.6 -----L Total: -1.6 Z Score values are as follows: -----R Neck: -0.1 -----L Neck: -0.2 -----R Total: 0.0 -----L Total: 0.1 Bone mineral density baseline FRAX%s: The graph provided illustrates a 10.7% chance for a major osteoporotic fx and a 1.9% chance f or the hips probability for fx in 10 years time. IMPRESSION: Osteopenia (T Score between -2.5 and -1). There is slightly increased risk of fracture and the patient may be considered for treatment. Re-Screen 2-5 years. NOTE: T-SCORE=SD OF THE YOUNG ADULT MEAN. [facility], , 08/09/2024 8:11 AM
--- NOTE | 2024-08-09 12:21 | MM ---
Reason for Exam: Screening (asymptomatic). Last mammogram was performed 1 year(s) and 10 month(s) ago. Patient History: Menarche at age 14. First Full-Term at age 25. Hysterectomy at age 46. Postmenopausal. Estrogen for 2 years from age 51 until age 53. Maternal cousin had breast cancer, age 40. Maternal aunt had breast cancer, age 65. Sister had breast cancer, age 56. Risk Values: Patricia 5 year model risk: 3.4%. NCI Lifetime model risk: 8.6%. Prior Study Comparison: 02/01/2019 Bilateral Screening Mammogram, [facility]. 11/26/2020 Bilateral Screening Mammogram, [facility]. 10/20/2022 Bilateral MG 3D screening mammo w/cad, [facility]. Tissue Density: The breasts are almost entirely fatty. Findings: Analyzed By CAD. Right breast: There is no suspicious group of microcalcifications or new suspicious mass. Left breast: There is no suspicious group of microcalcifications or new suspicious mass. Overall Assessment: Negative, BI-RAD 1 Management: Screening Mammogram of both breasts in [address] [facility] will attempt to contact patient to return for supplemental views and ultrasound if indicated. Patient should continue monthly self-breast exams. A clinical breast exam by your physician is recommended on an annual basis. This exam should not preclude additional follow-up of suspicious palpable abnormalities. Note on Patricia scores and lifetime risk: 1. A Patricia score greater than 3% is considered moderate risk. If this is the case, consider specialist referral to assess eligibility for a risk reducing agent. 2. If overall lifetime risk for the development of breast cancer is 20% or higher, the patient may qualify for future screening with alternating mammogram and breast MRI. [facility], , 08/09/2024 12:17 PM. Electronically signed and approved by: Kun Galindo DO
== END ==
LOC: WWCWWP 09:00
PROVIDERS: ATTEND Obstetrics & Gynecology
CPT/HCPCS: 77063; 77067; 77080